=== PATIENT | male | born 1965 | race Caucasian/White ===

== ENCOUNTER 2017-08-16 14:04 | Day surgery (SDC) | payer BC ==
[2017-08-16] MEDS ORDERED: LIDOCAINE 2% (SDV) 5 ML INJ (15:21)
[2017-08-16] MEDS ORDERED: PROPOFOL 40 ML (15:21)
== END 2017-08-16 16:24 | disposition home or self-care (01) ==
LOC: GIL 14:04
DX: K29.70 Gastritis, unspecified, without bleeding (principal); I10 Essential (primary) hypertension; E11.9 Type 2 diabetes mellitus without complications
CPT/HCPCS: 43239; 82962; 88305; 88312